=== PATIENT | male | born 1970 | race Caucasian/White ===

== ENCOUNTER 2016-09-14 10:53 | Emergency (ER) | payer MEDICAID ==
[~2016-09-14 10:53] MED LIST: ADA60 PO; ALBUTEROL0.09 MG/A3 IH; AURYXIA1 GM PO; BACO TOP; CARVEDILOL3.125 M1 PO; CLINDAMYCIN HC300 MG PO; HIBICLENS118 ML TOP; KEFLEX500 MG PO; LAC PO; LEV500 PO; LEVAQUIN750 MG PO; NIFEDIPINE ER60 MG PO; NIFEDIPINE PO; PROMETHAZINE D118 M1; REN800 PO; RENAGEL800 M1 PO
[2016-09-14 10:56] VITALS: BP 146/75
== END 2016-09-14 12:37 | disposition home or self-care (01) ==
LOC: ED 10:53
DX: S91.332A Puncture wound without foreign body, left foot, initial encounter (principal); E11.22 Type 2 diabetes mellitus with diabetic chronic kidney disease; N18.9 Chronic kidney disease, unspecified; I12.9 Hypertensive chronic kidney disease with stage 1 through stage 4 chronic kidney disease, or unspecified chronic kidney disease; Z99.2 Dependence on renal dialysis; Z89.421 Acquired absence of other right toe(s); Y93.89 Activity, other specified; W22.8XXA Striking against or struck by other objects, initial encounter; Y99.8 Other external cause status; Y92.89 Other specified places as the place of occurrence of the external cause
CPT/HCPCS: 82962; Q0092

== ENCOUNTER 2017-02-19 13:59 | Emergency (ER) | payer MEDICAID ==
[~2017-02-19] VITALS: Ht 193 cm; Wt 108.1 kg
[2017-02-19 14:13] VITALS: BP 124/70
== END 2017-02-19 15:20 | disposition home or self-care (01) ==
LOC: ED 13:59
DX: B02.9 Zoster without complications (principal); E11.22 Type 2 diabetes mellitus with diabetic chronic kidney disease; I12.9 Hypertensive chronic kidney disease with stage 1 through stage 4 chronic kidney disease, or unspecified chronic kidney disease; N18.9 Chronic kidney disease, unspecified; Z99.2 Dependence on renal dialysis

== ENCOUNTER 2018-08-30 04:46 | Emergency (ER) | payer MEDICAID ==
[~2018-08-30] VITALS: Ht 193 cm; Wt 106.6 kg
[2018-08-30 04:50] VITALS: Ht 193 cm; Wt 106.6 kg
[2018-08-30 05:48] LABS: BASOPHIL % 0.5 % (0-2); PLATELET COUNT 192 x10^3mcL (130-400); RED CELL DISTRIBUTION WIDTH 18.2 % (11.5-14.5)
[2018-08-30 06:02] LABS: ALBUMIN 4.1 g/dL (3.4-5.0); BILIRUBIN TOTAL 0.6 mg/dL (0.20-1.00); C REACTIVE PROTEIN 0.8 mg/dL (<=0.9)
[2018-08-30 06:03] LABS: TOTAL PROTEIN, SERUM 8.7 g/dL (6.4-8.2)
[2018-08-30 06:06] LABS: CALCIUM 9.5 mg/dL (8.5-10.1)
[2018-08-30 06:08] LABS: CREATININE SERUM 11.8 mg/dL (0.7-1.3); POTASSIUM SERUM 5.7 mmol/L (3.5-5.1)
[2018-08-30 06:29] LABS: ERYTHROCYTE SED RATE 26 mm/hr (0-15)
[2018-08-30 06:35] VITALS: BP 143/77
== END 2018-08-30 06:35 | disposition home or self-care (01) ==
LOC: ED 04:46
PROVIDERS: Emergency Medicine
DX: S90.811A Abrasion, right foot, initial encounter (principal); I12.9 Hypertensive chronic kidney disease with stage 1 through stage 4 chronic kidney disease, or unspecified chronic kidney disease; E11.22 Type 2 diabetes mellitus with diabetic chronic kidney disease; N18.9 Chronic kidney disease, unspecified; E87.5 Hyperkalemia; X58.XXXA Exposure to other specified factors, initial encounter; Y93.89 Activity, other specified; Y92.89 Other specified places as the place of occurrence of the external cause; Y99.8 Other external cause status
CPT/HCPCS: 36415; Q0092

== ENCOUNTER 2019-01-12 16:21 | Emergency (ER) | payer MEDICAID ==
[~2019-01-12] VITALS: Ht 193 cm; Wt 109.8 kg
[2019-01-12 16:35] VITALS: Ht 193 cm; Wt 109.8 kg
[2019-01-12 18:31] VITALS: BP 198/100
== END 2019-01-12 18:42 | disposition home or self-care (01) ==
LOC: ED 16:21
DX: H11.422 Conjunctival edema, left eye (principal); I10 Essential (primary) hypertension; E11.9 Type 2 diabetes mellitus without complications; Z98.890 Other specified postprocedural states

== ENCOUNTER 2019-03-01 13:19 | Emergency (ER) | payer MEDICAID ==
[~2019-03-01] VITALS: Ht 193 cm; Wt 105.2 kg
[2019-03-01 13:30] VITALS: Ht 193 cm; Wt 105.2 kg
[2019-03-01 15:50] VITALS: BP 172/68
== END 2019-03-01 15:50 | disposition home or self-care (01) ==
LOC: ED 13:19
DX: E11.621 Type 2 diabetes mellitus with foot ulcer (principal); M86.8X6 Other osteomyelitis, lower leg; E11.22 Type 2 diabetes mellitus with diabetic chronic kidney disease; I12.9 Hypertensive chronic kidney disease with stage 1 through stage 4 chronic kidney disease, or unspecified chronic kidney disease; N18.9 Chronic kidney disease, unspecified; Z99.2 Dependence on renal dialysis

== ENCOUNTER 2019-03-20 16:45 | Inpatient (IN) | payer MEDICAID ==
[~2019-03-20] VITALS: Ht 193 cm; Wt 107.0 kg
--- NOTE | 2019-03-20 18:08 | NUR ---
FIRST CONTACT. ORDERS NOTED. COMFORT MEASURES AND SUPPORTIVE CARE INITIATED. IV ESTABLISHED. LAB DRAWN. PCXR AT BS. PT C/O CHEST PAIN INCREASES AND PRIMARILY WITH COUGH.AGENCY DOCUMENTATION DONE BY Staff Name/Title - :RODRICK TUCKER [facility] CenterEventWith User ID - :[id number] Agency Name - :CERTIFIED Time Documented - From - :0700 To - :1900
[2019-03-20 18:09] LABS: BASOPHIL % 0.2 % (0-2); PLATELET COUNT 129 x10^3mcL (130-400); RED CELL DISTRIBUTION WIDTH 16.7 % (11.5-14.5)
[2019-03-20 19:39] LABS: BILIRUBIN TOTAL 1.22 mg/dL (0.20-1.00); CALCIUM 8.8 mg/dL (8.5-10.1); CARBON DIOXIDE 22.8 mmol/L (21-32)
[2019-03-20 19:43] LABS: TOTAL PROTEIN, SERUM 8.4 g/dL (6.4-8.2)
[2019-03-20 19:45] LABS: POTASSIUM SERUM 6.3 mmol/L (3.5-5.1)
--- NOTE | 2019-03-20 20:18 | NUR ---
REPORT GIVEN TO GARRETT GAMING TO ASSUME CARE OF THE PT.
--- NOTE | 2019-03-20 20:23 | NUR ---
INITIATED AZITHROMYCIN @ 250ML/HR. FEVER: 102.3, ADMINISTERED 1GM TYLENOL PO.
--- NOTE | 2019-03-20 20:35 | NUR ---
RECEIVED PT FROM ED VIA WHEELCHAIR, CAME IN DUE TO COUGH AND CONGESTION X2 DAYS. AAOX4. DENIES HEADACHE/DIZZINESS. ABLE TO FOLLOW COMMANDS. NO SOB NOTED, SHALLOW BREATHING NOTED, O2 SAT=92%, RA. STATED THAT HE HAS NON-PRODUCTIVE COUGH. C/O CHEST PAIN ONLY WHEN COUGHING. W/ TRACE EDEMA ON BLE. DENIES ABDOMINAL DISCOMFORT. ANURIC. ON HD EVERY MWF, MISSED DIALYSIS TODAY. W/ DARK DISCOLORATION ON BLE. W/ OPEN WOUND ON THE ELFT PLANTAR ASPECT OF THE FOOT (STATED THAT HE HAD IT FOR A YEAR), NO DRAINAGE/FOUL ODOR NOTED, COVERED W/ NON-ADHERENT DRESSING AND COVERED W/ RAJAN BANDAGE. W/ DRY SCAB ON THE LATERAL ASPECT OF THE FOOT, SRINIVASA. SIDE RAILS UPX2. CALL LIGHT ON REACH. NWLT=707.1, COOLING MEASURES INITIATED. ENDORSED TO PRIMARY NURSE AMBERLY FOR CONTINUITY OF CARE
[2019-03-20 20:37] LABS: CHOLESTEROL/HDL RATIO 4.3
[2019-03-20 21:21] VITALS: BP 179/90
[2019-03-20 21:29] VITALS: Ht 193 cm; Wt 107.0 kg
--- NOTE | 2019-03-20 21:52 | NUR ---
TYLENOL 650MG PO GIVEN FOR TEMP. OF 101.1. WILL CONTINUE TO MONITOR.
--- NOTE | 2019-03-20 23:45 | NUR ---
TEMP. RECHECK SHOWS 99.0. WILL CONTINUE TO MONITOR.
[2019-03-21] VITALS (9 sets, daily range): BP systolic 109–215; BP diastolic 61–118
--- NOTE | 2019-03-21 01:07 | NUR ---
RESTING QUIETLY , WITH EYES CLOSED, APPEARS ASLEEP, EASILY AROUSABLE. RESP. EVEN AND UNLABORED. ON ROOM AIR, NO ACUTE DISTRESS NOTED. CALL LIGHT WITHIN REACH. WILL CONTINUE TO MONITOR.
--- NOTE | 2019-03-21 06:25 | NUR ---
B/P READING THIS AM SHOWS 201/118. DR WANG NOTIFIED. HYDRALAZINE 10MG IV ORDERED.MEDICATED ORDERED. WILL CONTINUE TO MONITOR.
--- NOTE | 2019-03-21 06:27 | NUR ---
NO COMPLAINTS NOTED AT THIS TIME. RESP. EVEN AND UNLABORED. ON ROOM AIR, RESP. TREATMENT GIVEN BY RT, WENDY. WELL. ISOLATION PREC. MAINTAINED. DENIES PAIN OR ANY DISCOMFORT AT THIS TIME . WILL CONTINUE TO MONITOR.
[2019-03-21 06:32] LABS: BASOPHIL % 0.2 % (0-2)
[2019-03-21 06:52] LABS: PLATELET COUNT 111 x10^3mcL (130-400); RED CELL DISTRIBUTION WIDTH 16.5 % (11.5-14.5)
[2019-03-21 07:03] LABS: CALCIUM 8.7 mg/dL (8.5-10.1); CARBON DIOXIDE 20.8 mmol/L (21-32); MAGNESIUM 2.7 mg/dL (1.8-2.4)
--- NOTE | 2019-03-21 07:15 | NUR ---
SEEN SITTING ON THE EDGE OF BED, AAOX4. NO RESP DISTRESS NOTED. DIMINISHED LUNG SOUND. BREATHING EASY ON ROOM AIR. AV SHUNT TO LT ARM WITH(+) BRUITH/THRILL. S/L TO RAC INTACT AND PATENT. ON ROCEPHIN AND ZITHROMAX. CALL LIGHT PLACED WITHIN EASY REACH. SIDERAILS UP X2.
--- NOTE | 2019-03-21 07:22 | NUR ---
NOTED ORDER FOR HD TODAY, [facility] NOTIFIED VIA PHONE.
[2019-03-21 07:56] LABS: PHOSPHOROUS 10.6 mg/dL (2.5-4.9)
[2019-03-21 08:37] LABS: CREATININE SERUM 16.8 mg/dL (0.7-1.3)
--- NOTE | 2019-03-21 08:48 | NUR ---
PT FOUND ON ROOM AIR WITH SPO2 OF 89%. PT PLACED ON 2LNC AND SPO2 INCREASED TO 95%. WILL CONTINUE TO MONITOR.
--- NOTE | 2019-03-21 09:10 | NUR ---
HEMODIALYSIS NURSE HERE AT BEDSIDE TO START HEMODIALYSIS. PATIENT MADE AWARE.
--- NOTE | 2019-03-21 11:24 | NUR ---
SEEN BY DOCTOR FRANKLIN, DOCTOR RODRIGUEZ AT BEDSIDE. PATIENT MADE AWARE CURRENT CONDITION AND PLAN OF CARE.
--- NOTE | 2019-03-21 12:30 | NUR ---
HEMODIALYSIS DONE, 4 LITERS OF NET FLUID OUTPUT PER DIALYSIS NURSE. DENIES PAIN. APPEARS SLEEPY, TEMP 100.8, HR 90, BP 187/95, O2SAT 87% ON ROOM AIR, O2SAT 2LPM MAINTAINED O2SAT WENT UP 97% DOCTOR QUINCY MADE AWARE OF PATIENT'S HIGH BP AFTER DIALYSIS.
--- NOTE | 2019-03-21 14:14 | NUR ---
RECHECKED BP AFTER HYDRALAZINE BP 143/65, HR 90. DENIES PAIN.
--- NOTE | 2019-03-21 18:40 | NUR ---
NO ANY DISTRESS THROUGHOUT SHIFT. DENIES PAIN. AV HUNG TO LEFT WITH DRSG DRY/INTACT. BRP. STATED HAD 1 BM. ZOTHROMAX ONGOING AT THIS TIME TO RAC IV SITE, NO INFILTRATION NOTED. ON DROPLET ISOLATION FOR INFLUENZA A.
--- NOTE | 2019-03-21 18:49 | NUR ---
P.T. NOTES P.T. EVAL COMPLETED; PATIENT MAY AMBULATE W/ CRUTCHES W/ NURSE AD HA[place]; Pt HAS CRUTCHES AT HOME; L HEEL WB, POST OP SHOE.
--- NOTE | 2019-03-21 19:49 | NUR ---
AWAKE AND ALERT, ORIENTED TO NAME, PLACE, TIME AND SITUATION. SPEECH CLEAR AND APPROPRIATE. BREATHING EVEN AND UNLABORED ON ROOM AIR. NO COUGHING NOTED AT THIS TIME. HOB ELEVATED 30 DEG. SINUS RHYTHM ON TELE. IVPB ZITHROMAX INFUSING AT THIS TIME. DIALYSIS SHUNT TO LEFT FOREARM, POSITIVE FOR BRUITTS AND THRILLS. CALL LIGHT WITHIN EASY REACH. ON DROPLET ISOLATION.
--- NOTE | 2019-03-21 22:09 | NUR ---
EYES CLOSED, BREATHING EVEN AND UNLABORED ON ROOM AIR. RR 18/MIN. HOB ELEVATED 30 DEG. PT LYING ON HIS RIGHT SIDE. LEFT FOOT ELEVATED ON PILLOW. CALL LIGHT WITHIN EASY REACH.
--- NOTE | 2019-03-22 01:16 | NUR ---
SITTING ON SIDE OF BED. BREATHING EVEN AND UNLABORED. STATED HE WAS HUNGRY, ASKED FOR SANDWICH, PROVIDED. ATE WITH GOOD APPETITE.
[2019-03-22 05:05] VITALS: BP 167/87
[2019-03-22 06:03] LABS: BILIRUBIN TOTAL 0.94 mg/dL (0.20-1.00); CALCIUM 8.4 mg/dL (8.5-10.1); CARBON DIOXIDE 25.1 mmol/L (21-32); MAGNESIUM 2.5 mg/dL (1.8-2.4); POTASSIUM SERUM 4.6 mmol/L (3.5-5.1); TOTAL PROTEIN, SERUM 7.4 g/dL (6.4-8.2)
[2019-03-22 06:06] LABS: ALBUMIN 3.3 g/dL (3.4-5.0)
[2019-03-22 06:07] LABS: BASOPHIL % 0.7 % (0-2); PHOSPHOROUS 11.1 mg/dL (2.5-4.9)
[2019-03-22 06:08] LABS: CREATININE SERUM 14.1 mg/dL (0.7-1.3)
--- NOTE | 2019-03-22 06:10 | NUR ---
EYES CLOSED, EASILY AWAKENED. WAS PLACED ON NASAL CANNULA 2LPM OF O2 BY RESP THERAPIST, O2 SAT 99% AT THIS TIME. HOB KEPT ELEVATED 30 DEG. CALL LIGHT WITHIN EASY REACH.
[2019-03-22 06:13] LABS: PLATELET COUNT 107 x10^3mcL (130-400); RED CELL DISTRIBUTION WIDTH 16.3 % (11.5-14.5)
[2019-03-22 06:17] VITALS: BP 157/85
--- NOTE | 2019-03-22 07:09 | NUR ---
AWAKE AND ALERT, ON 2LPM OF O2 VIA NC. BREATHING UNLABORED. CALL LIGHT WITHIN EASY REACH. ENDORSED TO NURSE JLUIS
--- NOTE | 2019-03-22 07:55 | NUR ---
AT 0710 - RECEIVED PATIENT FROM NIGHT NURSE. AWAKE, ALERT AND ORIENTED. RESPIRATIONS REGULAR. ON O2 VIA NC AT 2L/MIN. NO SOB NOTED. IV SALINE LOCKED. DRESSING TO L FOOT IS DRY AND INTACT. PT HAS A POST-OP SHOE. AT 0750 - SITTING UP IN BED EATING BREAKFAST. NO COMPLAINTS.
[2019-03-22 08:08] VITALS: BP 167/83
--- NOTE | 2019-03-22 10:01 | NUR ---
O2 WEANING COMMENCED. PATIENT IS CURRENTLY ON 1L.
[2019-03-22 12:11] VITALS: BP 115/67
--- NOTE | 2019-03-22 14:10 | NUR ---
RESTING QUIETLY. VSS. BP NOW WNL.
--- NOTE | 2019-03-22 14:24 | NUR ---
LUIS DONG- 03/21/19 AT 1310-[facility] CARD AND LIST TO [facility] GIVEN TO PATIENT BY Stacy BARBER.
[2019-03-22 16:24] VITALS: BP 141/75
--- NOTE | 2019-03-22 16:26 | NUR ---
AT 1440 - DRESSING TO L PLANTAR WOUND CHANGED. PHOTO DOCUMENTED. DRESSED WITH BETIDINE SOAKED GAUZE, COVERED WITH DRY GAUZE DRESSING AND WRAPPED IN GAUZE BANDAGE AND RAJAN BANDAGE. PATIENT IS WEARING POST-OP SHOE.
--- NOTE | 2019-03-22 18:31 | NUR ---
VSS. BP WNL. AFEBRILE. RESPIRATIONS REGULAR. REMAINS ON 1L O2 VIA NC WITH O2 SAT 94%. NO C/O PAIN. EATING WELL. IV ANTIBIOTICS (ZITHROMAX AND ROCEPHIN) CURRENTLY IN PROGRESS. WILL ENDORSE CARE TO NIGHT NURSE.
--- NOTE | 2019-03-22 20:14 | NUR ---
PT CURRENTLY RESTING IN BED, NO ACUTE DISTRESS. A/O X4. TELE #5 SHOWING SINUS RHYTHM, DENIES CHEST PAIN. PULSES PALPABLE IN ALL EXTREMITIES, TRACE BLE EDEMA NOTED. LUNG SOUNDS DIMINISHED IN BILATERAL BASES, DENIES SOB. RECEIVING O2 VIA NC AT 1L. BOWEL SOUNDS ACTIVE, LAST BM 03/21/19. ANURIC. AV SHUNT TO LFA, LAST HD 03/21/19 4L OUT. LLE WEAKNESS. S/P LEFT FOOT WOUND DEBRIDEMENT, DRESSING CDI, POST OP SHOW IN PLACE, LEFT FOOT HEEL WEIGHT BEARING ONLY. IV PATENT AND INTACT. BED IN LOWEST POSITION, SIDE RAILS UP X2, CALL LIGHT WITHIN REACH. WILL CONTINUE TO MONITOR.
[2019-03-22 20:53] VITALS: BP 153/81
--- NOTE | 2019-03-23 00:36 | NUR ---
PT CURRENTLY RESTING IN BED, NO ACUTE DISTRESS. WILL CONTINUE TO MONITOR.
[2019-03-23 05:52] VITALS: BP 132/71
[2019-03-23 06:28] LABS: BASOPHIL % 0.7 % (0-2)
--- NOTE | 2019-03-23 06:34 | NUR ---
PT SLEPT PERIODICALLY THROUGHOUT NIGHT, NO ACUTE DISTRESS. ALL NEEDS MET AND ATTENDED TO. NO SIGNIFICANT CHANGES. IV PATENT AND INTACT. BED IN LOWEST POSITION, SIDE RAILS UP X2, CALL LIGHT WITHIN REACH. WILL ENDORSE CARE TO ONCOMING NURSE.
[2019-03-23 06:35] LABS: PLATELET COUNT 95 x10^3mcL (130-400); RED CELL DISTRIBUTION WIDTH 15.9 % (11.5-14.5)
--- NOTE | 2019-03-23 07:00 | NUR ---
RECEIVED REPORT FROM JACK TUCKER AT BEDSIDE, PT RESTING IN BED IN NO ACUTE DISTRESS
--- NOTE | 2019-03-23 07:30 | NUR ---
PT RESTING IN BED, IN NO ACUTE DISTRESS, AXO, VERBAL, ABLE TO MAKE NEEDS KNOWN, CALM AND COPPERATIVE, DENIED DICKERSON/DIZZINESS, PERRLA, NO REDNESS/DRAINAGE EENT, RESP EVEN, NO SOB/COUGH AT THIS TIME, DROPLET ISO, DIM BLL, 1L/MIN, NC, TELE #5, HR-79 AT THIS TIME, DENIED CP/PALPITATION, DENIED PAIN/DISCOMFORT, BS ACTIVE X 4, PALP PULSES, CAP REFILL < 2S, SEE SHIFT/SKIN ASSESSMENT, SKIN C/D/W, IV PATENT AND INFUSING WELL, AV SHUNT TO LFA THRILL/BRUIT (+), HD MWF, ANURIA, ALL NEEDS ADDRESSED AT THIS TIME, SAFETY PROTOCOL FOLLOWED, CONTINUE TO MONITOR
[2019-03-23 08:50] VITALS: BP 126/67
--- NOTE | 2019-03-23 09:10 | NUR ---
AM MEDs GIVEN PER MD ORDER VIA EMAR, TOLERATED WELL, NO ASE NOTED AT THIS TIME, EDUCATED PT R/T MEDs, ASE AND MONITOR, VERBALLY UNDERSTANDING, ALL NEEDS ADDRESSED, SAFETY PROTOCOL MAINTAINED, CONTINUE TO MONTIOR
[2019-03-23] MEDS ORDERED: TAMIFLU6 MG/ML PO (09:20)
[2019-03-23] MEDS ORDERED: ZITHROMAX Z-PA250 MG PO (09:21)
[2019-03-23] MEDS ORDERED: GUAIATUSSIN AC L5 ML PO (09:30)
--- NOTE | 2019-03-23 10:44 | NUR ---
PHARMACIST FROM [facility] CALLED AND NEED DOSE VERIFICATION FROM TAMIFLU, CLIENT CARE REPRESENTATIVE SADIQ BULLOCK MADE AWARE, SAID WILL DISCUSS W/ [place] PHARMACIST BEFORE PT DC, PT MADE AWARE, CHARGE NURSE BALTA MADE AWARE
[2019-03-23 12:20] LABS: CALCIUM 8.1 mg/dL (8.5-10.1); CARBON DIOXIDE 24.1 mmol/L (21-32); MAGNESIUM 2.6 mg/dL (1.8-2.4); POTASSIUM SERUM 4.5 mmol/L (3.5-5.1)
[2019-03-23 12:52] VITALS: BP 128/67
[2019-03-23 12:54] LABS: CREATININE SERUM 16.5 mg/dL (0.7-1.3); PHOSPHOROUS 12.5 mg/dL (2.5-4.9)
--- NOTE | 2019-03-23 13:15 | NUR ---
PT HAS HD AT BESIDE, TOLERATED WELL AT THIS TIME, ALL NEEDS ADDRESSED, SAFETY PROTOCOL FOLLOWED, CONTINUE TO MONTIOR
[2019-03-23 13:21] VITALS: BP 128/67
[2019-03-23 14:49] VITALS: BP 128/67
[2019-03-23 16:40] VITALS: BP 150/55
--- NOTE | 2019-03-23 16:57 | NUR ---
PT IN NO ACUTE DISTRESS, PT WANTED TO LEAVE AMA, EDUCATED PT R/T MEDICAL CONDITION, MEDICAL ATTENTION AND F/U NEEDED, PT STILL REFUSED TO STAY TO FINISH IV ANTIBIOTIC AND TAMIFLU, PT REFUSED TO SIGN AMA FORM, REAL TIME TRADER SADIQ BULLOCK PAGED AND MADE AWARE, SAID IT'S OK FOR PT TO AMA, TELE REMOVED AND RETURNED TO [facility], IV REMOVED, IV CATH TIP PATENT, NO ACTIVE BLEEDING NOTED, AV CHUNT TO LFA NTOED W/ BANDAID FROM RECENT HD, NO ACTIVE BLEEDING NOTED, THRILL/BRUIT (+), CHARGE NURSE BALTA MADE AWARE, PT ASSISTED TO LOBBY BY HOSPITAL STAFF
== END 2019-03-23 17:00 | disposition home or self-care (01) | DRG 720 ==
LOC: ED 16:45 → DU 19:26 → MU 19:26 → DU 20:35 → MU 20:36 → DU 03-21 12:28
PROVIDERS: Emergency Medicine; ADMIT Family Medicine
PROC: 0HBNXZZ Excision of Left Foot Skin, External Approach (ICD-10-PCS; principal; 2019-03-21)
PROC: 5A1D70Z Performance of Urinary Filtration, Intermittent, Less than 6 Hours Per Day (ICD-10-PCS; 2019-03-21)
PROC: 5A1D70Z Performance of Urinary Filtration, Intermittent, Less than 6 Hours Per Day (ICD-10-PCS; 2019-03-23)
DX: A41.9 Sepsis, unspecified organism (principal); I13.2 Hypertensive heart and chronic kidney disease with heart failure and with stage 5 chronic kidney disease, or end stage renal disease; J09.X1 Influenza due to identified novel influenza A virus with pneumonia; E11.22 Type 2 diabetes mellitus with diabetic chronic kidney disease; D69.59 Other secondary thrombocytopenia; E11.621 Type 2 diabetes mellitus with foot ulcer; E11.65 Type 2 diabetes mellitus with hyperglycemia; N18.6 End stage renal disease; L97.529 Non-pressure chronic ulcer of other part of left foot with unspecified severity; I50.9 Heart failure, unspecified; E87.5 Hyperkalemia; E87.1 Hypo-osmolality and hyponatremia; I16.0 Hypertensive urgency; D63.1 Anemia in chronic kidney disease; E80.6 Other disorders of bilirubin metabolism; F17.210 Nicotine dependence, cigarettes, uncomplicated; Z99.2 Dependence on renal dialysis; Z89.432 Acquired absence of left foot; Z89.421 Acquired absence of other right toe(s); Z79.84 Long term (current) use of oral hypoglycemic drugs; Z68.28 Body mass index [BMI] 28.0-28.9, adult
CPT/HCPCS: 82962; 87804; 94150; G0378; J0360; J0456; J0696; J1815; J2270; J2405; J7030; J7040; J7042; J7620; Q0092

== ENCOUNTER 2019-05-08 11:16 | Emergency (ER) | payer MEDICAID ==
[~2019-05-08] VITALS: Ht 193 cm; Wt 99.3 kg
[~2019-05-08 11:16] MED LIST changes: +GUAIATUSSIN AC L5 ML PO; +TAMIFLU6 MG/ML PO; +ZITHROMAX Z-PA250 MG PO
[2019-05-08 11:22] VITALS: BP 168/84; Ht 193 cm; Wt 99.3 kg
== END 2019-05-08 13:46 | disposition home or self-care (01) ==
LOC: ED 11:16
DX: J34.0 Abscess, furuncle and carbuncle of nose (principal); E11.22 Type 2 diabetes mellitus with diabetic chronic kidney disease; I12.0 Hypertensive chronic kidney disease with stage 5 chronic kidney disease or end stage renal disease; N18.6 End stage renal disease; Z99.2 Dependence on renal dialysis; Z89.421 Acquired absence of other right toe(s)
CPT/HCPCS: J0696

== ENCOUNTER 2019-05-11 07:48 | Emergency (ER) | payer MEDICAID ==
[~2019-05-11] VITALS: Ht 193 cm; Wt 100.2 kg
[2019-05-11 07:53] VITALS: Ht 193 cm; Wt 100.2 kg
[2019-05-11 09:29] VITALS: BP 150/66
== END 2019-05-11 09:29 | disposition home or self-care (01) ==
LOC: ED 07:48
DX: J34.0 Abscess, furuncle and carbuncle of nose (principal); I10 Essential (primary) hypertension; E11.9 Type 2 diabetes mellitus without complications; Z99.2 Dependence on renal dialysis; Z89.421 Acquired absence of other right toe(s)
CPT/HCPCS: J2001

== ENCOUNTER 2019-07-10 17:29 | Emergency (ER) | payer MEDICAID ==
[~2019-07-10] VITALS: Ht 193 cm; Wt 99.8 kg
[2019-07-10 17:44] VITALS: Ht 193 cm; Wt 99.8 kg
[2019-07-10 18:43] VITALS: BP 197/97
== END 2019-07-10 18:43 | disposition home or self-care (01) ==
LOC: ED 17:29
DX: J34.0 Abscess, furuncle and carbuncle of nose (principal); E11.9 Type 2 diabetes mellitus without complications; Z98.890 Other specified postprocedural states

== ENCOUNTER 2019-10-16 18:33 | Emergency (ER) | payer MEDICAID ==
[~2019-10-16] VITALS: Ht 193 cm; Wt 99.3 kg
[2019-10-16 18:36] VITALS: Ht 193 cm; Wt 99.3 kg
[2019-10-16 19:21] VITALS: BP 165/91
== END 2019-10-16 19:21 | disposition home or self-care (01) ==
LOC: ED 18:33
DX: S10.96XA Insect bite of unspecified part of neck, initial encounter (principal); L02.11 Cutaneous abscess of neck; I10 Essential (primary) hypertension; E11.22 Type 2 diabetes mellitus with diabetic chronic kidney disease; N18.6 End stage renal disease; Z98.890 Other specified postprocedural states; W57.XXXA Bitten or stung by nonvenomous insect and other nonvenomous arthropods, initial encounter; Y93.89 Activity, other specified; Y92.89 Other specified places as the place of occurrence of the external cause; Y99.8 Other external cause status
CPT/HCPCS: 82962

== ENCOUNTER 2019-10-21 18:07 | Emergency (ER) | payer MEDICAID ==
[~2019-10-21] VITALS: Ht 193 cm; Wt 102.1 kg
[2019-10-21 18:27] VITALS: Ht 193 cm; Wt 102.1 kg
[2019-10-21 19:35] VITALS: BP 199/94
== END 2019-10-21 19:35 | disposition home or self-care (01) ==
LOC: ED 18:07
DX: L02.13 Carbuncle of neck (principal); K21.9 Gastro-esophageal reflux disease without esophagitis

== ENCOUNTER 2020-06-06 17:08 | Emergency (ER) | payer MEDICAID ==
[~2020-06-06] VITALS: Ht 193 cm; Wt 81.6 kg
[2020-06-06 17:23] VITALS: Ht 193 cm; Wt 81.6 kg
[2020-06-06] MEDS ORDERED: CIPRO250 MG PO (17:37)
[2020-06-06 18:02] VITALS: BP 147/83
== END 2020-06-06 18:02 | disposition home or self-care (01) ==
LOC: ED 17:08
DX: N34.2 Other urethritis (principal); E11.22 Type 2 diabetes mellitus with diabetic chronic kidney disease; I12.0 Hypertensive chronic kidney disease with stage 5 chronic kidney disease or end stage renal disease; N18.6 End stage renal disease; Z99.2 Dependence on renal dialysis; Z89.421 Acquired absence of other right toe(s)